=== PATIENT | male | born 1995 | race Caucasian/White ===

== ENCOUNTER → 2023-09-06 | Outpatient (CLI) | payer OTHER ==
--- NOTE | 2023-09-06 22:57 | MR ---
EXAMINATION TYPE: MR cervical spine wo con DATE OF EXAM: 09/06/2023 COMPARISON: None HISTORY: Neck pain, Headaches CONTRAST: None TECHNIQUE: Multiplanar multiecho imaging on a 3.0 Marlene magnet is performed through the cervical spin e. FINDINGS: The craniovertebral junction is normal. Vertebral body alignment is normal. Vertebral maxim dy heights are preserved. Cord maintains normal signal throughout its visualized course. The craniove rtebral junction appears within normal limits. There is some disc desiccation C4-5 disc height is preserved. No spinal canal stenosis is present john ral foramen are patent. No focal disc herniation or significant disc bulge is evident. No spinal canal stenosis or neural for aminal stenosis is present IMPRESSION: 1. Mild disc desiccation C4-5. 2. No spinal canal stenosis, loss of disc height or other MRI abnormality.
== END | disposition home or self-care (01) ==
LOC: RADMRIMAIN 20:45
PROVIDERS: ATTEND Family Medicine
DX: M54.2 Cervicalgia (principal); R51.9 Headache, unspecified
CPT/HCPCS: 72141

== ENCOUNTER → 2024-10-06 | Outpatient (CLI) | payer OTHER ==
--- NOTE | 2024-10-06 13:53 | XR ---
EXAMINATION TYPE: XR chest 2V DATE OF EXAM: 10/06/2024 1:48 PM COMPARISON: None. CLINICAL INDICATION: Male, 29 years old with history of D45 D75.1 Polycythemia R51.9 Headache, TECHNIQUE: Frontal and lateral views of the chest are obtained. FINDINGS: There is no focal air space opacity, pleural effusion, or pneumothorax seen. The cardiac silhouette size is within normal limits. The osseous structures are intact. IMPRESSION: No acute cardiopulmonary process. [facility], , 10/06/2024 1:51 PM
== END | disposition home or self-care (01) ==
LOC: RADXRMAIN 12:53
PROVIDERS: ATTEND Internal Medicine Hematology & Oncology
DX: D75.1 Secondary polycythemia (principal); R51.9 Headache, unspecified
CPT/HCPCS: 71046

== ENCOUNTER → 2025-01-17 | Outpatient (CLI) | payer OTHER ==
--- NOTE | 2025-01-18 09:49 | MR ---
EXAMINATION TYPE: MR knee RT wo con DATE OF EXAM: 01/17/2025 8:45 PM COMPARISON: None. CLINICAL INDICATION: Male, 29 years old with history of M25.561; PHH, Right knee pain more on medial side x6mo to 1 year, TECHNIQUE: Multi planar, multi sequence imaging was performed of the knee including: Triplane proton density fat-saturated images and T1-weighted imaging. No Gadolinium was given. IV Contrast: mL (none if empty) FINDINGS: Medial meniscus: Intact Medial femorotibial cartilage: Intact Medial collateral ligament: Intact Lateral meniscus: Intact Lateral femorotibial cartilage: Intact Lateral collateral ligament complex: Intact Patellofemoral alignment: Normal Patellofemoral cartilage: Intact Extensor mechanism: Intact. Joint/bursal fluid: None. Muscles/tendons: The patellar tendon, quadriceps tendon, IT band, pes anserinus tendons, semimembrano anselmo tendon, popliteus tendon, and biceps femoris tendon are all within normal limits. Bone marrow: High PD edema involving the medial femoral condyle with cortical irregularity of the articular surface. Anterior cruciate ligament: Intact. Posterior cruciate ligament: Intact. Soft tissues: Unremarkable. IMPRESSION: 1. Osteochondral defect of the medial femoral condyle with subchondral bony edema. 2. No definitive evidence to suggest meniscal tear nor ligamentous injury. [facility], , 01/18/2025 9:47 AM
== END | disposition home or self-care (01) ==
LOC: RADMRIMAIN 20:00
PROVIDERS: ATTEND Orthopaedic Surgery
DX: R60.9 Edema, unspecified (principal); M21.961 Unspecified acquired deformity of right lower leg

== ENCOUNTER → 2025-02-15 | Outpatient (CLI) | payer OTHER ==
[2025-02-16 02:24] LABS: Basophils # (A) 0.07 X 10*3/uL (0.00-0.10); Basophils % (A) 1.0 %; Eosinophils # (A) 0.17 X 10*3/uL (0.04-0.35); Eosinophils % (A) 2.5 %; HCT 46.9 % (39.6-50.0); HGB 16.1 g/dL (13.0-17.0); Immature Grans, Automated 0.10 %; Lymphocytes # (A) 2.11 X 10*3/uL (0.90-5.00); Lymphocytes % (A) 31.5 %; MCH 30.2 pg (27.0-32.0); MCHC 34.3 g/dL (32.0-37.0); MCV 88.0 FL (80.0-97.0); Monocytes # (A) 0.90 X 10*3/uL (0.20-1.00); Monocytes % (A) 13.5 %; NRBC Per 100 WBC 0 X 10*3/uL (0.00-0.01); Neutrophils # (A) 3.43 X 10*3/uL (1.80-7.70); Neutrophils % (A) 51.4 %; Platelet Count 320 X 10*3/uL (140-440); RBC 5.33 X 10*6/uL (4.40-5.60); RDW 11.8 % (11.5-14.5); WBC 6.69 X 10*3/uL (4.50-10.00)
[2025-02-16 03:07] LABS: Anion Gap 11.9 mmol/L (4.00-12.00); Carbon Dioxide 26.1 mmol/L (21.6-31.8); Chloride 99.0 mmol/L (96-109); Potassium 4.1 mmol/L (3.5-5.5); Sodium 137.0 mmol/L (135-145)
== END | disposition home or self-care (01) ==
LOC: LABWHC1 15:09
PROVIDERS: ATTEND Orthopaedic Surgery
DX: Z01.812 Encounter for preprocedural laboratory examination (principal); M23.91 Unspecified internal derangement of right knee
CPT/HCPCS: 36415; 80051; 85025